=== PATIENT | female | born 1955 | race Native Hawaiian/Other Pacific Islander ===

== ENCOUNTER 2020-04-12 08:19 | Outpatient (CLI) | payer OTHER | END 2020-04-12 21:36 | disposition home or self-care (01) | LOC: US 08:19 | PROVIDERS: ATTEND Nurse Practitioner Family | DX: R10.13 Epigastric pain (principal); R11.0 Nausea; R14.2 Eructation; K21.9 Gastro-esophageal reflux disease without esophagitis ==

== ENCOUNTER 2020-06-06 11:58 | Outpatient (CLI) | payer OTHER | END 2020-06-06 21:10 | disposition home or self-care (01) | LOC: RAD 11:58 | PROVIDERS: ATTEND Nurse Practitioner Family | DX: M25.511 Pain in right shoulder (principal); M25.561 Pain in right knee; M54.9 Dorsalgia, unspecified; M25.512 Pain in left shoulder ==